=== PATIENT | male | born 1980 | race Caucasian/White ===

== ENCOUNTER 2022-10-14 13:19 | Emergency (ER) | payer SELFPAY ==
[2022-10-14] MEDS ORDERED: Cyclobenzaprine 10 MG Tab PO ONE (13:50)
[2022-10-14] MEDS ORDERED: Ketorolac 30 MG/ML SDV IM ONE (13:50)
[2022-10-14] MEDS: Acetaminophen/oxyCODONE 325-5 MG Tab PO STA ×2 (13:56→14:26)
[2022-10-14 14:46] VITALS: BP 117/78; PULSE 68
== END 2022-10-14 15:22 | disposition home or self-care (01) ==
LOC: FB.ED 13:19
DX: M51.16 Intervertebral disc disorders with radiculopathy, lumbar region (principal); F17.210 Nicotine dependence, cigarettes, uncomplicated; Z79.899 Other long term (current) drug therapy
CPT/HCPCS: 96372; 99283; A9270; J1885

== ENCOUNTER 2022-10-30 15:17 | Emergency (ER) | payer BC ==
[2022-10-30] MEDS ORDERED: Morphine 4 MG/ML VIAL IM ONE (16:45)
[2022-10-30] MEDS ORDERED: Ketorolac 30 MG/ML SDV IM STA (16:45)
[2022-10-30 18:54] VITALS: BP 131/75; PULSE 72
== END 2022-10-30 16:58 | disposition home or self-care (01) ==
LOC: FB.ED 15:17
DX: M51.16 Intervertebral disc disorders with radiculopathy, lumbar region (principal); F17.210 Nicotine dependence, cigarettes, uncomplicated; K21.9 Gastro-esophageal reflux disease without esophagitis; Z79.899 Other long term (current) drug therapy
CPT/HCPCS: 96372; 99283; J1885; J2270

== ENCOUNTER 2022-11-30 12:31 | Emergency (ER) | payer BC ==
[2022-11-30] MEDS ORDERED: Ketorolac 30 MG/ML SDV IM STA (13:03)
[2022-11-30] MEDS ORDERED: Morphine 4 MG/ML VIAL IM ONE (13:03)
[2022-11-30] MEDS ORDERED: Cyclobenzaprine 10 MG Tab PO ONE (13:03)
[2022-11-30 13:19] VITALS: BP 142/86; PULSE 98
== END 2022-11-30 13:28 | disposition home or self-care (01) ==
LOC: FB.ED 12:31
DX: M54.50 Low back pain, unspecified (principal); G89.29 Other chronic pain; M54.16 Radiculopathy, lumbar region; K21.9 Gastro-esophageal reflux disease without esophagitis; Z79.899 Other long term (current) drug therapy
CPT/HCPCS: 96372; 99283; A9270; J1885; J2270

== ENCOUNTER 2022-12-21 07:59 | Emergency (ER) | payer BC ==
[2022-12-21 08:11] VITALS: BP 122/71; PULSE 61
[2022-12-21] MEDS ORDERED: Ketorolac 30 MG/ML SDV IM ONE (08:50)
[2022-12-21] MEDS ORDERED: Morphine 4 MG/ML VIAL IM ONE ×2 (08:50→08:54)
== END 2022-12-21 10:28 | disposition home or self-care (01) ==
LOC: FB.ED 07:59
DX: M51.16 Intervertebral disc disorders with radiculopathy, lumbar region (principal); K21.9 Gastro-esophageal reflux disease without esophagitis; Z87.891 Personal history of nicotine dependence; Z79.899 Other long term (current) drug therapy
CPT/HCPCS: 96372; 99283; J1885; J2270

== ENCOUNTER 2022-12-22 09:56 | Emergency (ER) | payer BC ==
[2022-12-22] MEDS ORDERED: Ketorolac 30 MG/ML SDV IM ONE (10:31)
[2022-12-22 10:50] VITALS: BP 139/77; PULSE 68
== END 2022-12-22 10:54 | disposition home or self-care (01) ==
LOC: FB.ED 09:56
DX: M54.41 Lumbago with sciatica, right side (principal); K21.9 Gastro-esophageal reflux disease without esophagitis; Z79.899 Other long term (current) drug therapy
CPT/HCPCS: 96372; 99283; J1885

== ENCOUNTER 2023-05-17 22:45 | Emergency (ER) | payer SELFPAY ==
[2023-05-17] MEDS ORDERED: Cyclobenzaprine 10 MG Tab PO ONE (22:46)
[2023-05-17] MEDS: hydrOXYzine HCl 50 MG/ML SDV IM ONE (23:14)
[2023-05-17] MEDS: HYDROmorphone 2 MG/ML SDV IM ONE (23:14)
[2023-05-18 02:21] VITALS: BP 127/86
[2023-05-18 02:31] VITALS: PULSE 86
== END 2023-05-17 23:52 | disposition home or self-care (01) ==
LOC: FB.ED 22:45
DX: M51.16 Intervertebral disc disorders with radiculopathy, lumbar region (principal); K21.9 Gastro-esophageal reflux disease without esophagitis; Z79.899 Other long term (current) drug therapy
CPT/HCPCS: 96372; 99283; A9270-GY; J1170; J3410

== ENCOUNTER 2023-05-18 10:34 | Emergency (ER) | payer SELFPAY ==
[2023-05-18] MEDS: Morphine 10 MG/ML SDV IM ONE (11:40)
[2023-05-18] MEDS: Ketorolac 30 MG/ML SDV IM ONE (11:40)
[2023-05-18] MEDS: Diazepam 5 MG Tab PO ONE (11:49)
[2023-05-18] MEDS: Diazepam 2 MG Tab PO ONE (11:49)
[2023-05-18] MEDS: predniSONE 20 MG Tab PO ONE (12:57)
[2023-05-18 13:00] VITALS: BP 142/59; PULSE 65
== END 2023-05-18 13:06 | disposition home or self-care (01) ==
LOC: FB.ED 10:34
DX: M54.16 Radiculopathy, lumbar region (principal); G89.29 Other chronic pain; K21.9 Gastro-esophageal reflux disease without esophagitis; Z86.19 Personal history of other infectious and parasitic diseases; Z79.899 Other long term (current) drug therapy; Z87.891 Personal history of nicotine dependence
CPT/HCPCS: 72100; 96372; 99284; A9270; J1885; J2270; J7512